=== PATIENT | male | born 1945 | race Hispanic/Latino ===

== ENCOUNTER 2018-01-24 14:18 | Emergency (ER) | payer MEDICARE ==
[~2018-01-24] VITALS: Ht 180.3 cm; Wt 90.5 kg
[~2018-01-24 14:18] MED LIST: AMARYL4 MG PO; ATORVASTATIN CA40 MG PO; HYDROCHLOROT25 MG PO; JANUMET1 TA1 PO; LISINOPRIL20 MG PO; METOPROL TAR25 MG PO; NAPROSYN500 MG PO; NORVASC PO; TRICOR145 MG PO; [UNRECOGNIZED DRUG - REMARK]
[2018-01-24] MEDS ORDERED: ANACIN 400-32 M1 TAB PO (14:32)
[2018-01-24] MEDS ORDERED: COREG25 MG PO (14:33)
[2018-01-24] MEDS ORDERED: CLOPIDOGREL75 MG PO (14:33)
[2018-01-24] MEDS ORDERED: FARXIGA5 MG PO (14:34)
[2018-01-24] MEDS ORDERED: ALLERGY NA50 MCG/ACT NAB (14:36)
[2018-01-24] MEDS ORDERED: NEURONTIN300 MG PO (14:36)
[2018-01-24] MEDS ORDERED: AMARYL1 MG PO (14:37)
[2018-01-24] MEDS ORDERED: CLARITIN10 M1 PO (14:38)
[2018-01-24] MEDS ORDERED: METFORMIN500 M2 PO (14:39)
[2018-01-24] MEDS ORDERED: LOSARTAN POT50 MG PO (14:39)
[2018-01-24] MEDS ORDERED: OMEGA 31000 MG PO (14:40)
[2018-01-24] MEDS ORDERED: MYRBETRIQ25 MG PO (14:40)
[2018-01-24] MEDS ORDERED: SILDENAFIL20 MG PO (14:42)
[2018-01-24] MEDS ORDERED: SPIRONO/HCTZ PO (14:43)
[2018-01-24] MEDS ORDERED: TRAMADOL HCL50 MG PO (14:44)
[2018-01-24] MEDS ORDERED: TRESIBA FL200 UNIT/M IJ (14:45)
[2018-01-24] MEDS ORDERED: BACTRIM DS1 TAB PO (14:48)
[2018-01-24] MEDS ORDERED: VALACYCLOVIR HCL1 GM PO ×2 (14:48→14:58)
[2018-01-24] MEDS ORDERED: CEPHALEXIN500 M1 PO (14:48)
[2018-01-24] MEDS ORDERED: MUPIROCIN21 TOP (14:56)
[2018-01-24 15:05] VITALS: BP 120/82
== END 2018-01-24 15:05 | disposition home or self-care (01) ==
LOC: ED 14:18
DX: B02.8 Zoster with other complications (principal); L03.211 Cellulitis of face; I10 Essential (primary) hypertension; E11.9 Type 2 diabetes mellitus without complications; E78.00 Pure hypercholesterolemia, unspecified

== ENCOUNTER → 2018-11-03 | Outpatient (REF) | payer MEDICARE ==
[~2018-11-03] MED LIST changes: +ALLERGY NA50 MCG/ACT NAB; +AMARYL1 MG PO; +ANACIN 400-32 M1 TAB PO; +BACTRIM DS1 TAB PO; +CEPHALEXIN500 M1 PO; +CLARITIN10 M1 PO; +CLOPIDOGREL75 MG PO; +COREG25 MG PO; +FARXIGA5 MG PO; +LOSARTAN POT50 MG PO; +METFORMIN500 M2 PO; +MUPIROCIN21 TOP; +MYRBETRIQ25 MG PO; +NEURONTIN300 MG PO; +OMEGA 31000 MG PO; +SILDENAFIL20 MG PO; +SPIRONO/HCTZ PO; +TRAMADOL HCL50 MG PO; +TRESIBA FL200 UNIT/M IJ; +VALACYCLOVIR HCL1 GM PO
== END | disposition home or self-care (01) ==
LOC: STRESS 08:00 → NUCMED 08:15
PROVIDERS: ATTEND Internal Medicine
DX: I20.9 Angina pectoris, unspecified (principal); I25.118 Atherosclerotic heart disease of native coronary artery with other forms of angina pectoris
CPT/HCPCS: A9502; J2785

== ENCOUNTER 2018-11-28 11:13 | Emergency (ER) | payer OTHER, MEDICARE ==
[~2018-11-28] VITALS: Ht 180.3 cm; Wt 90.0 kg
[2018-11-28 13:00] VITALS: BP 116/75
== END 2018-11-28 13:00 | disposition home or self-care (01) | DRG 552 ==
LOC: ED 11:13
DX: S16.1XXA Strain of muscle, fascia and tendon at neck level, initial encounter (principal); S39.012A Strain of muscle, fascia and tendon of lower back, initial encounter; I10 Essential (primary) hypertension; E11.9 Type 2 diabetes mellitus without complications; V49.40XA Driver injured in collision with unspecified motor vehicles in traffic accident, initial encounter